=== PATIENT | female | born 1970 | race Caucasian/White ===

== ENCOUNTER 2021-12-29 11:38 | Observation (INO) | payer OTHER ==
[~2021-12-29] VITALS: Ht 172.7 cm; Wt 75.3 kg
[~2021-12-29 11:38] MED LIST: ADDERALL 30 MG30 MG PO; VALIUM10 MG PO; ZOLOFT100 MG PO
[2021-12-29 12:18] LABS: BASOPHILS % 0.4 % (0.0-1.0); EOSINOPHILS % 0.4 % (0.0-6.0); HEMATOCRIT 46.3 % (34.2-44.1); HEMOGLOBIN 15.5 g/dL (12.0-16.0); LYMPHOCYTES # (AUTO) 1.6 (1.0-3.2); LYMPHOCYTES % 28.5 % (18.0-39.1); MEAN CORPUSCULAR HEMOGLOBIN 31.8 pg (28-32); MEAN CORPUSCULAR HGB CONC 33.5 g/dL (31-35); MEAN CORPUSCULAR VOLUME 94.9 fL (81-99); MONOCYTES # (AUTO) 0.4 (0.2-0.8); MONOCYTES % 6.4 % (4.4-11.3); NEUTROPHILS # (AUTO) 3.5 (2.1-6.9); NEUTROPHILS % 64.1 % (38.7-80.0); PLATELET COUNT 263 x10e3/uL (140-360); RED BLOOD COUNT 4.88 x10e6/uL (3.6-5.1); RED CELL DISTRIBUTION WIDTH 11.9 % (11.7-14.4)
[2021-12-29] MEDS ORDERED: LIDOCAINE HCL 2% LOCAL INJ 5 ML SDV VIAL INJ ONE (12:24)
[2021-12-29] MEDS ORDERED: POVIDONE IODINE 0.05% 0.05 % ML PO ONE (12:24)
[2021-12-29] MEDS ORDERED: PROPOFOL IV EMULSION 10 MG/ML 20 ML VIAL ONE (12:24)
[2021-12-29] MEDS ORDERED: ONDANSETRON HCL INJ 2MG/ML 2ML 2 MG/ML VIAL ONE (12:24)
[2021-12-29] MEDS ORDERED: GLYCOPYRROLATE INJ 0.2 MG/ML VIAL ONE (12:24)
[2021-12-29] MEDS ORDERED: KETOROLAC TROMETHAMINE 30 MG/ML VIAL ONE (12:24)
[2021-12-29] MEDS ORDERED: SEVOFLURANE INHAL SOLN 250 ML PEN BTL ONE (12:24)
[2021-12-29] MEDS ORDERED: DEXAMETHASONE SOD PHOS INJ 4 MG/ML SDV ONE (12:24)
[2021-12-29 12:42] LABS: ALANINE AMINOTRANSFERASE 14 IU/L (0-55); ALBUMIN 4.7 g/dL (3.5-5.0); ALBUMIN/GLOBULIN RATIO 1.3 (0.8-2.0); ALKALINE PHOSPHATASE 49 IU/L (40-150); ANION GAP 14.2 mmol/L (8-16); BLOOD UREA NITROGEN 11 mg/dL (7-26); BUN/CREATININE RATIO 12 (6-25); CALCIUM 9.6 mg/dL (8.4-10.2); CARBON DIOXIDE 25 mmol/L (22-29); CHLORIDE 103 mmol/L (98-107); CREATINE KINASE 62 IU/L (29-168); CREATININE, SERUM 0.92 mg/dL (0.57-1.11); EST GLOMERULAR FILTRATION RATE 64 ML/MIN (60-); GLUCOSE 104 mg/dL (74-118); POTASSIUM 4.2 mmol/L (3.5-5.1); SODIUM 138 mmol/L (136-145)
[2021-12-29] MEDS ORDERED: ONDANSETRON HCL INJ 2MG/ML 2ML 2 MG/ML VIAL IV STA ×2 (12:50→15:13)
[2021-12-29] MEDS ORDERED: Morphine 4mg Syringe 4 MG/ML INJ IV ONE (13:00)
[2021-12-29] MEDS ORDERED: IOPAMIDOL 370 MG/ML 100 ML INFUS..BTL INJ ONE (13:06)
[2021-12-29 14:28] LABS: CLARITY,URINE CLEAR (CLEAR); COLOR,URINE YELLOW (YELLOW); KETONES,URINE NEGATIVE (NEGATIVE); LEUKOCYTE ESTERASE ,URINE NEGATIVE (NEGATIVE); NITRITE,URINE NEGATIVE (NEGATIVE); PROTEIN,URINE DIPSTICK NEGATIVE (NEGATIVE); URINE UROBILINOGEN 0.2 mg/dL (0.2 - 1)
[2021-12-29 14:44] LABS: BACTERIA,URINE MANY /HPF; EPITHELIAL CELLS,URINE MODERATE /LPF
[2021-12-29] MEDS ORDERED: SODIUM CHLORIDE 0.9% 250ML 250 ML IV ONE (16:00)
[2021-12-29] MEDS: SODIUM CHLORIDE 0.9% 1000ML 1,000 ML IV SCH ×2 (16:42→22:12)
[2021-12-29] MEDS ORDERED: GADOBENATE DIMEGLUMINE 1 ML IV ONE (17:15)
[2021-12-29 19:50] VITALS: BP 112/58
[2021-12-29 20:00] VITALS: BP 112/58
[2021-12-29 20:10] VITALS: BP 112/58
[2021-12-29] MEDS: Morphine 4mg Syringe 4 MG/ML INJ IV PRN (22:13)
[2021-12-29] MEDS: ONDANSETRON HCL INJ 2MG/ML 2ML 2 MG/ML VIAL IV PRN (22:13)
[2021-12-29] MEDS ORDERED: SODIUM CHLORIDE 0.45% 1,000 ML IV ONE (22:30)
[2021-12-30 05:37] LABS: BASOPHILS % 0.5 % (0.0-1.0); EOSINOPHILS # (AUTO) 0.1 (0.0-0.4); HEMOGLOBIN 13.8 g/dL (12.0-16.0); LYMPHOCYTES # (AUTO) 1.7 (1.0-3.2); LYMPHOCYTES % 41.6 % (18.0-39.1); MEAN CORPUSCULAR HEMOGLOBIN 31.6 pg (28-32); MEAN CORPUSCULAR HGB CONC 32.9 g/dL (31-35); MEAN CORPUSCULAR VOLUME 96.1 fL (81-99); MONOCYTES # (AUTO) 0.4 (0.2-0.8); MONOCYTES % 10.6 % (4.4-11.3); NEUTROPHILS # (AUTO) 1.8 (2.1-6.9); NEUTROPHILS % 45.3 % (38.7-80.0); PLATELET COUNT 218 x10e3/uL (140-360); RED BLOOD COUNT 4.37 x10e6/uL (3.6-5.1); RED CELL DISTRIBUTION WIDTH 11.8 % (11.7-14.4)
[2021-12-30 06:06] LABS: ALBUMIN 4.2 g/dL (3.5-5.0); ALBUMIN/GLOBULIN RATIO 1.6 (0.8-2.0); ANION GAP 12.4 mmol/L (8-16); CALCIUM 8.8 mg/dL (8.4-10.2); CREATININE, SERUM 1.08 mg/dL (0.57-1.11); POTASSIUM 4.4 mmol/L (3.5-5.1)
[2021-12-30] MEDS: Morphine 4mg Syringe 4 MG/ML INJ IV PRN ×2 (06:27→21:49)
[2021-12-30] MEDS: ONDANSETRON HCL INJ 2MG/ML 2ML 2 MG/ML VIAL IV PRN ×4 (06:27→21:49)
[2021-12-30 08:04] VITALS: BP 99/52
[2021-12-30 08:52] VITALS: BP 99/52
[2021-12-30] MEDS: D AMPHET PO SCH ×2 (09:00→17:00)
[2021-12-30] MEDS: AMPHET ASP PO SCH ×2 (09:00→17:00)
[2021-12-30] MEDS: AMPHET PO SCH ×2 (09:00→17:00)
[2021-12-30] MEDS: SERTRALINE HCL 100 MG TAB PO SCH ×2 (09:00→17:00)
[2021-12-30] MEDS ORDERED: SUGAMMADEX SODIUM 200 MG/2 ML VIAL IV ONE (09:15)
[2021-12-30] MEDS ORDERED: FENTANYL CITRATE/PF 100MCG/2 ML INJ ONE (09:16)
[2021-12-30] MEDS ORDERED: HYDROMORPHONE 1MG/1ML INJ ONE (09:16)
[2021-12-30] MEDS ORDERED: MIDAZOLAM HCL 2 MG/2 ML VIAL ONE (09:17)
[2021-12-30] MEDS ORDERED: BUPIVACAINE HCL 0.25% 10ML MPF VIAL INJ ONE (09:18)
[2021-12-30] MEDS: HYDROMORPHONE 1MG/1ML INJ IV PRN ×2 (11:25→17:46)
[2021-12-30] MEDS: ACETAMINOPHEN 325 MG TAB PO PRN ×2 (11:28→13:38)
[2021-12-30 11:40] VITALS: BP 98/58
[2021-12-30] MEDS: FAMOTIDINE 20 MG/2 ML VIAL IV SCH (13:38)
[2021-12-30] MEDS: SODIUM CHLORIDE 0.9% 1000ML 1,000 ML IV SCH ×2 (15:45→17:50)
[2021-12-30 16:19] VITALS: BP 96/50
[2021-12-30 20:00] VITALS: BP 100/49
[2021-12-30 22:03] VITALS: BP 100/49
[2021-12-31] VITALS: BP 112/76
[2021-12-31] MEDS: SODIUM CHLORIDE 0.9% 1000ML 1,000 ML IV SCH (02:11)
[2021-12-31 04:00] VITALS: BP 98/58
[2021-12-31 08:27] VITALS: BP 98/58
[2021-12-31 08:52] VITALS: BP 93/52
[2021-12-31] MEDS: AMPHET PO SCH (09:00)
[2021-12-31] MEDS: AMPHET ASP PO SCH (09:00)
[2021-12-31] MEDS: SERTRALINE HCL 100 MG TAB PO SCH (09:00)
[2021-12-31] MEDS: D AMPHET PO SCH (09:00)
[2021-12-31] MEDS: FAMOTIDINE 20 MG/2 ML VIAL IV SCH (09:32)
[2021-12-31] MEDS: HYDROCODONE/APAP 5MG-325MG TAB PO PRN ×2 (09:40→13:25)
[2021-12-31] MEDS ORDERED: DOCUSATE SODIUM LIQD 100 MG/10 ML UDC NG SCH (11:15)
[2021-12-31] MEDS ORDERED: PEPCID20 MG PO (11:30)
[2021-12-31] MEDS ORDERED: DOCUSATE SODIU100 MG PO (11:30)
[2021-12-31] MEDS ORDERED: ACETAMINOPHEN325 M1 PO (11:30)
[2021-12-31] MEDS ORDERED: SENNOSIDES 8.6 MG TAB PO SCH (11:30)
[2021-12-31] MEDS ORDERED: METRONIDAZOLE500 MG PO (11:30)
[2021-12-31] MEDS ORDERED: SENOKOT8.6 MG PO (11:30)
[2021-12-31 11:49] VITALS: BP 124/63
== END 2021-12-31 13:25 | disposition home or self-care (01) ==
LOC: ER 11:51 → ERHOLD 15:41 → INTOOBSV 15:41 → MED/SURG 19:52
PROVIDERS: ADMIT Internal Medicine; ATTEND Internal Medicine
DX: K80.12 Calculus of gallbladder with acute and chronic cholecystitis without obstruction (principal); F39 Unspecified mood [affective] disorder; F90.9 Attention-deficit hyperactivity disorder, unspecified type; Z90.49 Acquired absence of other specified parts of digestive tract; Z90.710 Acquired absence of both cervix and uterus; Z20.822 Contact with and (suspected) exposure to COVID-19
CPT/HCPCS: 36415 ×2; 47562; 71045; 74177; 74183; 76705; 80053 ×2; 81001; 81025; 82550; 82553; 83690; 84484; 85025 ×2; 88304; 93005; 99284; A9577; C1713; G0378 ×3; J1100; J1170; J1885; J2001; J2250; J2270 ×2; J2405 ×2; J2543 ×3; J2704; J3010; J7030 ×2; Q9967; U0002

== ENCOUNTER → 2024-08-10 | Outpatient (REF) | payer OTHER ==
[~2024-08-10] MED LIST changes: +ACETAMINOPHEN325 M1 PO; +DOCUSATE SODIU100 MG PO; +METRONIDAZOLE500 MG PO; +PEPCID20 MG PO; +SENOKOT8.6 MG PO
== END ==
LOC: MAMMO 10:27
PROVIDERS: ATTEND Internal Medicine
DX: Z12.31 Encounter for screening mammogram for malignant neoplasm of breast (principal)
CPT/HCPCS: 77067